=== PATIENT | male | born 1975 | race Two or more races ===

== ENCOUNTER 2023-06-06 16:19 | Emergency (ER) | payer OTHER ==
[~2023-06-06] VITALS: Ht 175.3 cm; Wt 81.6 kg
[2023-06-06] MEDS ORDERED: HYDROCODONE/APAP 10-325 MG TABLET PO ONE (17:15)
[2023-06-06] MEDS ORDERED: NEOM28.38 TP ×2 (18:53→19:15)
[2023-06-06] MEDS ORDERED: HYDR-4209 PO (19:15)
[2023-06-06] MEDS ORDERED: CEPH500T PO (20:27)
[2023-06-06 20:34] VITALS: BP 128/77; TEMP 98.2; O2SAT 99
== END 2023-06-06 20:35 | disposition home or self-care (01) ==
LOC: EDBD 16:22 → ER 16:22
DX: S81.032A Puncture wound without foreign body, left knee, initial encounter (principal); M25.562 Pain in left knee; W01.0XXA Fall on same level from slipping, tripping and stumbling without subsequent striking against object, initial encounter; Y93.89 Activity, other specified; Y92.89 Other specified places as the place of occurrence of the external cause; Y99.8 Other external cause status
CPT/HCPCS: 73700; A4606; A4663